=== PATIENT | female | born 2005 | race Caucasian/White ===

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

== ENCOUNTER 2025-02-05 17:28 | Emergency (ER) | payer SELFPAY ==
[2025-02-05 17:49] LABS: BASOPHILS ABSOLUTE AUTO 0.04 K/uL (0.00-0.30); BASOPHILS PERCENT AUTO 0.3 % (0.0-1.0); EOSINOPHILS ABSOLUTE AUTO 0.15 K/uL (0.00-0.70); EOSINOPHILS PERCENT AUTO 1.1 % (0.0-5.0); IMMATURE GRAN ABSOLUTE AUTO 0.06 K/uL (0.00-0.05); IMMATURE GRAN PERCENT AUTO 0.5 % (0.0-0.4); LYMPHOCYTES ABSOLUTE AUTO 2.71 K/uL (2.00-8.80); LYMPHOCYTES PERCENT AUTO 20.4 % (50.0-65.0); MEAN PLATELET VOLUME 9.2 fL (9.4-12.3); MONOCYTES ABSOLUTE AUTO 0.68 K/uL (0.10-1.40); MONOCYTES PERCENT AUTO 5.1 % (2.0-10.0); NEUTROPHILS ABSOLUTE AUTO 9.62 K/uL (1.50-8.50); NEUTROPHILS PERCENT AUTO 72.6 % (35.0-45.0); NRBC ABSOLUTE 0.00 K/uL (0.00-0.03); NRBC PERCENT 0.0 /100WBC (0.0-0.2); PLATELET COUNT,PLT 271 K/uL (150-400); RED BLOOD CELL COUNT 4.59 M/uL (4.10-5.30); WHITE BLOOD CELL COUNT,WBC 13.26 K/uL (4.5-13.5)
[2025-02-05 18:31] LABS: A/G RATIO 0.6 (0.9-1.6); ALANINE AMINOTRANSFERASE,ALT 17.0 IU/L (14-63); ASPARTATE AMNIOTRANSFERASE,AST 14.0 IU/L (15-37); BILIRUBIN TOTAL 0.1 mg/dL (0.2-1.0); BLOOD UREA NITROGEN,BUN 7.0 mg/dL (7.0-18.0); CARBON DIOXIDE,CO2 22.5 mmol/L (21.0-32.0); CHLORIDE,CL 103.0 mmol/L (98-107); CREATININE 0.7 mg/dL (0.6-1.0); EST CRCL DRUG DOSING (CG) 102.24 mL/min; GLUCOSE RANDOM 90.0 mg/dL (74-106); POTASSIUM,K 3.8 mmol/L (3.5-5.1); PROTEIN TOTAL,TP 7.4 g/dL (6.4-8.2); SODIUM,NA 136.0 mmol/L (136-145)
[2025-02-05 18:32] LABS: ESTIMATED GFR 128.0 mL/min (>60); HCG QUANTITATIVE 188679.0 mIU/mL
[2025-02-05 18:38] LABS: APPEARANCE,URINE CLEAR; GLUCOSE,URINE NEGATIVE (NEGATIVE); OCCULT BLOOD,URINE LARGE (NEGATIVE)
[2025-02-05 19:05] LABS: EPITHELIAL CELLS,URINE FEW (NONE-FEW)
== END 2025-02-05 20:22 | disposition home or self-care (01) ==
LOC: MW.ED 17:28
DX: O20.9 Hemorrhage in early pregnancy, unspecified (principal); Z75.3 Unavailability and inaccessibility of health-care facilities
CPT/HCPCS: 36415; 76801; 76817; 80053; 81001; 84702; 85025; 86900; 86901; 96372; 99284; J2791; 99283

== ENCOUNTER 2025-03-09 22:22 | Emergency (ER) | payer MEDICAID ==
[2025-03-09 23:03] LABS: APPEARANCE,URINE CLOUDY; GLUCOSE,URINE NEGATIVE (NEGATIVE); OCCULT BLOOD,URINE NEGATIVE (NEGATIVE)
[2025-03-09 23:20] LABS: BASOPHILS ABSOLUTE AUTO 0.06 K/uL (0.00-0.30); BASOPHILS PERCENT AUTO 0.4 % (0.0-1.0); EOSINOPHILS ABSOLUTE AUTO 0.11 K/uL (0.00-0.70); EOSINOPHILS PERCENT AUTO 0.8 % (0.0-5.0); IMMATURE GRAN ABSOLUTE AUTO 0.05 K/uL (0.00-0.05); IMMATURE GRAN PERCENT AUTO 0.3 % (0.0-0.4); LYMPHOCYTES ABSOLUTE AUTO 3.53 K/uL (2.00-8.80); LYMPHOCYTES PERCENT AUTO 24.6 % (50.0-65.0); MEAN PLATELET VOLUME 9.1 fL (9.4-12.3); MONOCYTES ABSOLUTE AUTO 0.78 K/uL (0.10-1.40); MONOCYTES PERCENT AUTO 5.4 % (2.0-10.0); NEUTROPHILS ABSOLUTE AUTO 9.80 K/uL (1.50-8.50); NEUTROPHILS PERCENT AUTO 68.5 % (35.0-45.0); NRBC ABSOLUTE 0.00 K/uL (0.00-0.03); NRBC PERCENT 0.0 /100WBC (0.0-0.2); PLATELET COUNT,PLT 234 K/uL (150-400); RED BLOOD CELL COUNT 4.43 M/uL (4.10-5.30); WHITE BLOOD CELL COUNT,WBC 14.33 K/uL (4.5-13.5)
[2025-03-09 23:43] LABS: A/G RATIO 0.6 (0.9-1.6); ALANINE AMINOTRANSFERASE,ALT 19.0 IU/L (14-63); ASPARTATE AMNIOTRANSFERASE,AST 13.0 IU/L (15-37); BILIRUBIN TOTAL 0.1 mg/dL (0.2-1.0); BLOOD UREA NITROGEN,BUN 7.0 mg/dL (7.0-18.0); CARBON DIOXIDE,CO2 22.0 mmol/L (21.0-32.0); CHLORIDE,CL 106.0 mmol/L (98-107); CREATININE 0.5 mg/dL (0.6-1.0); EST CRCL DRUG DOSING (CG) 143.13 mL/min; GLUCOSE RANDOM 101.0 mg/dL (74-106); POTASSIUM,K 3.6 mmol/L (3.5-5.1); PROTEIN TOTAL,TP 6.8 g/dL (6.4-8.2); SODIUM,NA 139.0 mmol/L (136-145)
[2025-03-09 23:44] LABS: ESTIMATED GFR 138.0 mL/min (>60)
== END 2025-03-10 01:00 | disposition home or self-care (01) ==
LOC: MW.ED 22:22
DX: R10.13 Epigastric pain (principal); R10.11 Right upper quadrant pain; Z79.899 Other long term (current) drug therapy
CPT/HCPCS: 36415; 76705; 76705-26; 80053; 81003; 83690; 84703; 85025; 87086; 99283; 99284